=== PATIENT | male | born 1980 | race Caucasian/White ===

== ENCOUNTER 2023-09-11 19:26 | Emergency (ER) | payer OTHER, SELFPAY ==
[2023-09-11 19:34] VITALS: BP 152/89; PULSE 115; RESP 22; TEMP 38.6; O2SAT 97; BMI 25.1
--- NOTE | 2023-09-11 19:48 | ED.GENADULT ---
HPI - General Adult General Chief complaint: Ear/Nose/Throat Problem Stated complaint: ear infection Time Seen by Provider: 09/11/23 19:31 History of Present Illness HPI narrative: CC: Bilateral Ear Pain, Headache, Fevers pt. diagnosed with ear infection 2 weeks ago. is on drops and amoxicillin. states ear pain not better 42-year-old man presenting to the emergency depart with concern of headache and fever. Was apparently diagnosed with an ear infection I am able to clarify that I believe this was probably an otitis externa with surrounding cellulitis at the left ear. Looks like was taking not amoxicillin but actually Augmentin and he has been experiencing some diarrhea. Also been using ofloxacin drops. Admittedly that is better. He is still congested in the nasopharynx. Two days ago began to have symptoms otherwise as noted above. He says he just feels bad eyes ever felt with a headache across the back of his head and aches. Took ibuprofen about 5 hours ago. No particular exposures. Arrives with a temperature of 101.5? and tachycardic. Not really with chest pain other than just ?congestion? he indicates in the upper sternum area. No rashes noted. Can sleep. Vomited. Related Data Home Medications Medication Instructions Recorded Confirmed No Known Home Medications 09/11/23 09/11/23 Allergies Allergy/AdvReac Type Severity Reaction Status Date / Time No Known Drug Allergies Allergy Verified 09/11/23 19:37 Review of Systems Status of ROS: Reports: 6 or more systems reviewed and unremarkable except as noted in History and below [facility] Medical History (Updated 09/11/23 @ 21:31 by Sudhir Mijares MD) No significant past medical history Surgical History (Updated 09/11/23 @ 20:00 by Albaro Hope RN) No significant past surgical history Social History Smoking Status: Never smoker Second hand tobacco smoke exposure: No How often do you have a drink containing alcohol: never How often do you have six or more drinks on one occasion: Never AUDIT-C Alcohol total score: 0 Non-prescribed substance use: marijuana (any form) Exam Narrative: Exam Narrative: Transitions to sitting position without difficulty. Does look tired and uncomfortable. Intermittent congested brief cough. Nasopharynx is congested without facial swelling or erythema Oropharynx is sticky with the yellowish green tongue inconsistent with the orange power rate next to him. He does not smoke. Neck is supple. TMs bilaterally are clear. I do not see any rash cellulitis. Generally feels warm on his skin. Lungs are clear. Heart is tachycardic in a regular rhythm. Extremities are well perfused without edema. Const: Vital Signs, click to edit/add: Vital Signs - 24 hr 09/11/23 19:34 Temperature 101.5 F H Pulse Rate [Right Pulse Oximeter] 115 H Respiratory Rate 22 Blood Pressure [Ri ght Upper Arm] 152/89 H Pulse Oximetry 97 Oxygen Delivery Me thod Room Air Documenting provider has reviewed patient's vital signs: yes Course Vital Signs Vital signs: Initial Vital Signs Temperature 101.5 F H 09/11/23 19:34 Temperature Source Temporal Artery Scan 09/11/23 19:34 Pulse Rate 115 H 09/11/23 19:34 Respiratory Rate 22 09/11/23 19:34 Blood Pressure 152/89 H 09/11/23 19:34 Blood Pressure Mean 110 H 09/11/23 19:34 Blood Pressure Position Sitting 09/11/23 19:34 Pulse Oximetry 97 09/11/23 19:34 Oxygen Delivery Method Room Air 09/11/23 19:34 Vital Signs Temperature 101.5 F H 09/11/23 19:34 Pulse Rate 115 H 09/11/23 19:34 Respiratory Rate 22 09/11/23 19:34 Blood Pressure 152/89 H 09/11/23 19:34 Pulse Oximetry 97 09/11/23 19:34 Oxygen Delivery Method Room Air 09/11/23 19:34 Temperature 100.2 F H 09/11/23 21:34 Pulse Rate 110 H 09/11/23 21:34 Respiratory Rate 22 09/11/23 21:34 Blood Pressure 145/78 H 09/11/23 21:34 Pulse Oximetry 98 09/11/23 20:29 Oxygen Delivery Method Room Air 09/11/23 20:29 Medications Administered Medications: Discontinued Medications Generic Name Dose Route Start Last Admin Trade Name Freq PRN Reason Stop Dose Admin Sodium Chloride 1,000 mls @ 1,000 mls/hr 09/11/23 20:01 09/11/23 20:51 0.9 % Sodium Chloride 1000 Ml IV 09/11/23 21:00 Infused .Q1H ONE Infusion Ketorolac Tromethamine 30 mg 09/11/23 20:01 09/11/23 20:10 Ketorolac 30 Mg/Ml Inj IVP 09/11/23 20:02 30 mg ONCE ONE Administration Ondansetron HCl 4 mg 09/11/23 20:02 09/11/23 20:08 Ondansetron 2 Mg/Ml Inj IVP 09/11/23 20:03 4 mg ONCE ONE Administration Pseudoephedrine HCl 60 mg 09/11/23 20:02 09/11/23 20:11 Pseudoephedrine Hcl 30 Mg Tablet PO 09/11/23 20:03 60 mg ONCE ONE Administration Medical Decision Making MDM Narrative Medical decision making narrative: Considering community problems I would anticipate influenza a. We will treat though for his headache. He does not have meningeal signs beyond the headache. IV fluids ketorolac coming up on a 6 hour window for his ibuprofen dosing. Also pseudoephedrine for this congestion Zofran. IV is initiated. Labs do confirm influenza a. On reassessment does appear to have more energy and reports feeling improved. Tolerating oral intake. Discussed potentially prescribing Tamiflu. Does not have underlying comorbidities. He understandably decides to decline. Is though concerned about the degree of myalgias and headache that he has been experiencing not responding to [id number] treatment affecting sleep tonight and tomorrow yet. See patient discharge plan Lab Data Lab results reviewed: Yes I reviewed the patient's lab results Labs: Lab Results 09/11/23 Range/Units 19:40 SARS-CoV-2 (PCR) Negative SARS-CoV-2 (Negative) Influenza Type A (PCR) POSITIVE PCR FLU A A (Negative) Influenza Type B (PCR) Negative PCR FLU B (Negative) RSV (PCR) Negative PCR RSV (Negative) Discharge Plan Discharge Clinical Impression: Influenza A, Myalgia, Headache Patient Disposition: Home w/ Parent or Adult Condition: Improved Additional Instructions: Focus on hydration for now. Can take up to 800 mg of ibuprofen or up to 1000 mg of acetaminophen per dose. Alternative to the ibuprofen might be up to 500 mg naproxen 2 times daily. Return for increasing and persistent shortness of breath, severe/uncontrolled headache. Small quantity of [place], Tamiflu and Zofran from [facility]. Consider 12 hour pseudoephedrine for drying and decongestion Prescriptions: No Action No Known Home Medications Follow Up/Referrals: Provider,Not a Local [Primary Care Provider] - Stand Alone Forms: NAME'S Online Department Store Info Instructions
[2023-09-11] MEDS: ONDANSETRON 2 MG/ML inj 4 MG IVP (20:08)
[2023-09-11 20:10] VITALS: TEMP 38.6; O2SAT 98
[2023-09-11] MEDS: 0.9 % SODIUM CHLORIDE 1000 ml 1,000 ML IV (20:10)
[2023-09-11] MEDS: KETOROLAC 30 MG/ML inj IVP (20:10)
[2023-09-11] MEDS: PSEUDOEPHEDRINE HCL 30 MG TABLET 60 MG PO (20:11)
[2023-09-11 20:21] LABS: PCR FLU A POSITIVE PCR FLU A (Negative); PCR FLU B Negative PCR FLU B (Negative); PCR RSV Negative PCR RSV (Negative); SARS PCR* Negative SARS-CoV-2 (Negative)
[2023-09-11 20:29] VITALS: BP 145/78; PULSE 110; RESP 22; TEMP 38.6; O2SAT 98
[2023-09-11 21:22] VITALS: TEMP 37.9
[2023-09-11 21:34] VITALS: BP 145/78; PULSE 110; RESP 22; TEMP 37.9
== END 2023-09-11 21:36 | disposition home or self-care (01) ==
PROVIDERS: Emergency Provider Family Medicine
DX: J10.1 Influenza due to other identified influenza virus with other respiratory manifestations (principal); M79.10 Myalgia, unspecified site; R51.9 Headache, unspecified
CPT/HCPCS: 87631; 94761; 96374; 96375; 99284; A9270; J1885; J2405; J7030